=== PATIENT | male | born 1955 | race Caucasian/White ===

== ENCOUNTER → 2020-11-26 07:43 | Outpatient (CLI) | payer BC, SELFPAY ==
--- NOTE | 2020-11-26 | DI.MRI.S_ITS ---
PROCEDURE: MR CERVICAL SPINE WO CON INDICATIONS: WEAKNESS OF LEFT ARM TECHNIQUE: Noncontrast sagittal T1 spin echo and T2 fast spin echo, sagittal STIR, foraminal oblique sagittal T2 fast spin echo, and axial gradient echo or T2 fast spin echo through the cervical spine. COMPARISON: None. FINDINGS: Image quality: Partially degraded by motion artifact. Alignment and Curvature: There is loss of normal cervical lordosis. Bone Marrow: Marrow demonstrates normal overall signal. There is moderate reactive signal within the endplates adjacent to the C3-C4 intervertebral disc. Mild reactive signal within the endplates adjacent to the C2-C3, C4-C5, C5-C6, and C6-C7 intervertebral discs. Spinal Cord: Visualized spinal cord has normal size and signal. No cerebellar tonsillar herniation. Paraspinous Soft Tissues: No paravertebral masses. Prevertebral soft tissues are normal in thickness. C2-C3: Moderate disc desiccation. Mild diffuse disc bulge with superimposed central protrusion. Congenital canal stenosis. Mild facet and uncovertebral hypertrophy bilaterally. Moderate to severe canal stenosis. Minimal cord flattening. Moderate left and mild right foraminal stenosis. C3-C4: Moderate disc height loss and desiccation. Moderate diffuse disc bulge. Congenital canal stenosis. Moderate facet and uncovertebral hypertrophy bilaterally. Severe canal stenosis. Moderate cord flattening. Severe right greater than left foraminal stenosis with right greater than left C4 nerve root compression. C4-C5: Mild disc height loss. Moderate disc desiccation. Moderate diffuse disc bulge. Congenital canal stenosis. Moderate facet and uncovertebral hypertrophy bilaterally. Severe canal stenosis. Mild cord flattening. Severe right and moderate left foraminal stenosis. Right C5 nerve root compression. C5-C6: Congenital canal stenosis. Moderate disc desiccation. Mild disc height loss. Moderate diffuse disc bulge. Moderate right greater than left facet and uncovertebral hypertrophy. Severe canal stenosis with mild cord flattening. Severe right and moderate left foraminal stenosis. Right C6 nerve root compression. C6-C7: Congenital canal stenosis. Mild disc height loss. Moderate disc desiccation. Moderate diffuse disc bulge . Mild facet and uncovertebral hypertrophy bilaterally. Moderate to severe canal stenosis. Minimal anterior cord flattening. Moderate right and mild left foraminal stenosis. C7-T1: Mild disc height loss and desiccation. Mild diffuse disc bulge. Mild facet and uncovertebral hypertrophy bilaterally. Mild canal stenosis. Mild bilateral foraminal stenosis. IMPRESSION: 1. Diffuse congenital canal stenosis with superimposed disc and facet disease, as well as uncovertebral hypertrophy. 2. Multilevel canal stenoses, worst at C2-C3, C3-C4, C4-C5, C5-C6, and C6-C7, where there is cord flattening present. 3. Multilevel foraminal stenoses, worst at C3-C4, C4-C5, and C5-C6, where there is associated intraforaminal nerve root compression. Recommend correlation with clinical symptoms to ascertain relevance of these findings. Dictated by: Suzanne Feng M.D. on 11/26/2020 at 9:08 Approved by: Suzanne Feng M.D. on 11/26/2020 at 9:45
== END ==
PROVIDERS: PCP Family Medicine; Referring Provider Family Medicine; Visit Provider Family Medicine
DX: R29.898 Other symptoms and signs involving the musculoskeletal system (principal); M48.02 Spinal stenosis, cervical region; M50.21 Other cervical disc displacement, high cervical region
CPT/HCPCS: 72141

== ENCOUNTER → 2021-01-28 13:13 | Outpatient (CLI) | payer BC, SELFPAY ==
--- NOTE | 2021-01-28 | DI.CT.S_ITS ---
PROCEDURE: CT CERVICAL SPINE WO CON INDICATIONS: Spinal stenosis, cervical region TECHNIQUE: Noncontrast 3 mm thick sections acquired from the skull base to the T4 level. Sagittal and coronal reformats were then constructed. For radiation dose reduction, the following was used: automated exposure control, adjustment of mA and/or kV according to patient size. COMPARISON: [facility], MR, MR CERVICAL SPINE WO CON, 11/26/2020, 7:52. FINDINGS: Image quality: This examination is somewhat limited by quantum mottle artifact. Bones: No fractures or dislocations. Visualized superior ribs are intact. Degenerative changes are seen throughout, with moderate to severe disc space narrowing at C3-C4, with associated endplate irregularity and sclerosis. Posteriorly directed endplate osteophytes are seen at this level. Milder degenerative changes are seen elsewhere, including partially bridging anterior osteophytes at C4-C5. Focal degenerative change is seen involving the C1-C2 interface anteriorly. Milder degenerative changes are seen elsewhere. Soft tissues: There is a spiculated mass seen at the right lung apex that measures up to 2.8 cm. Underlying centrilobular emphysematous changes are seen. Prevertebral soft tissues are normal in thickness. No paravertebral hematomas. No apical pneumothoraces. IMPRESSION: Cervical spine degenerative changes are seen, which are overall better demonstrated on the prior recent MRI examination and worst at the C3-C4 level. A 2.7 cm right lung apex mass is seen, which is highly suspicious for primary neoplasm, although differential diagnosis includes metastatic disease. Further evaluation is recommended, beginning either with a percutaneous CT-guided biopsy or a dedicated PET-CT. Note: Findings and recommendations relayed to Dr. Raines via nurse Adam at 1:13 p.m. [place] time on January 28, 2021. Dictated by: Toni Hart M.D. on 01/28/2021 at 13:05 Approved by: Toni Hart M.D. on 01/28/2021 at 13:13
== END ==
PROVIDERS: PCP Family Medicine; Referring Provider Neurological Surgery; Visit Provider Neurological Surgery
DX: M48.02 Spinal stenosis, cervical region (principal); M47.812 Spondylosis without myelopathy or radiculopathy, cervical region; R91.8 Other nonspecific abnormal finding of lung field
CPT/HCPCS: 72125

== ENCOUNTER → 2021-02-17 13:00 | Outpatient (CLI) | payer BC, SELFPAY ==
--- NOTE | 2021-02-17 | DI.CT.S_ITS ---
PROCEDURE: CT CHEST W CON INDICATIONS: Localized swelling, mass and lump, trunk TECHNIQUE: After the administration of intravenous contrast, 5 mm thick sections acquired from the pulmonary apices to the posterior costophrenic angles. 1 mm axial lung, 5 mm thick coronal and sagittal reformats and 7 mm axial MIP were acquired. For radiation dose reduction, the following was used: automated exposure control, adjustment of mA and/or kV according to patient size. COMPARISON: [facility], MR, MR CERVICAL SPINE WO CON, 11/26/2020, 7:52. FINDINGS: Image quality: Excellent. 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 Underlying mild centrilobular emphysema. No acute air space opacities. No pleural effusions or pneumothorax. Central and peripheral airways are patent and normal in caliber. Mediastinum: Heart size is normal. No pericardial effusion. No mediastinal or hilar adenopathy by size criteria. Thoracic aorta and central pulmonary arteries are normal in size. Esophagus is normal in caliber. No hiatal hernia. Bones and chest wall: No suspicious bony lesions. No vertebral body compression fractures. No axillary or supraclavicular adenopathy by size criteria. Thyroid gland is unremarkable, as visualized. Abdomen: Remote left nephrectomy. Visualized upper abdominal solid organs appear normal. Upper abdominal bowel loops are normal in caliber. IMPRESSION: 1. 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 2. Mild underlying centrilobular emphysema. 3. No metastatic lesions identified. Comment: Recommend PET-CT for further evaluation. At the appropriate time, this lesion would be amenable to CT-guided biopsy for tissue diagnosis. Comment: An Urgent Findings note was created in PACS to ensure notification of the referring clinician. Dictated by: Mike Pearl M.D. on 02/17/2021 at 14:37 Approved by: Mike Pearl M.D. on 02/17/2021 at 14:49
== END ==
PROVIDERS: PCP Family Medicine; Referring Provider Internal Medicine Cardiovascular Disease; Visit Provider Family Medicine
DX: R91.8 Other nonspecific abnormal finding of lung field (principal); I25.10 Atherosclerotic heart disease of native coronary artery without angina pectoris; I48.0 Paroxysmal atrial fibrillation; J43.2 Centrilobular emphysema; Z79.899 Other long term (current) drug therapy
CPT/HCPCS: 71260; 93005